=== PATIENT | male | born 1955 | race Caucasian/White ===

== ENCOUNTER 2021-08-10 14:21 | Observation (INO) | payer OTHER, SELFPAY ==
[2021-08-10] VITALS (26 sets, daily range): BP systolic 148–202; BP diastolic 89–150; PULSE 64–98; RESP 13–23; TEMP 36.4–37.2; O2SAT 96–100; BMI 24.3
--- NOTE | ~2021-08-10 | XR_ITS ---
EXAMINATION: XR chest 2V DATE: 08/10/2021 19:13 INDICATION: Wheezing TECHNIQUE: PA and lateral views of the chest were obtained. COMPARISON: None FINDINGS: The lungs are clear with no focal airspace opacities, pulmonary edema, pleural effusion or pneumothor ax. The cardiomediastinal silhouette is normal. Mild to moderate thoracic spondylosis. There appears be fusion between the right first and second ribs. IMPRESSION: 1. No acute cardiopulmonary disease. Reviewed, dictated and finalized at location A.
--- NOTE | ~2021-08-10 | CT_ITS ---
EXAMINATION: CTA brain carotid DATE: 08/11/2021 17:43 INDICATION: Stroke TECHNIQUE: Computed tomographic angiography (CTA) of the head was performed without and with 100 mL O mnipaque-350 intravenous contrast. CTA of the neck was performed with intravenous contrast. The dose- length product was 1684.75 mGy-cm. Maximum intensity projection and volume rendered 3D-reconstruction s were created by the technologist on a separate workstation. Automated exposure control and iterativ e reconstruction technique were employed. COMPARISON: MRI from today FINDINGS: HEAD CTA: There is no acute intraparenchymal hemorrhage. No evidence of mass lesion. No evidence of a cute infarction. The known acute right parieto-occipital infarcts are not well demonstrated. There is moderate periventricular and subcortical hypodensity probably related to small vessel ischemic disea se. There is mild prominence of the sulci and ventricles related to cerebral atrophy. Intracranial ca lcified cerebral atherosclerosis is noted. There are no extra-axial collections. There is no mass eff ect or midline shift. The orbits and soft tissues are unremarkable. The visualized sinuses and mastoi d air cells are well aerated. There is no significant stenosis of the basilar artery or posterior cerebral arteries. There is no si gnificant stenosis of the intracranial internal carotid arteries or the anterior or middle cerebral a rteries. The anterior communicating artery and posterior communicating arteries are normal. There is no aneurysm. NECK CTA: The thyroid gland is unremarkable. The submandibular and parotid glands are symmetric. Ther e is no lymphadenopathy. There are no masses identified. The airway is unremarkable. There are no oss eous abnormalities. The superior mediastinum is unremarkable. There is 90% stenosis of the proximal right internal carotid artery relative to normal distal artery lumen diameter (NASCET criteria). There is 86% stenosis of the proximal left internal carotid artery relative to normal distal artery lumen diameter. IMPRESSION: 1. No acute intracranial abnormality. Normal head CTA. Known acute right parieto-occipital infarcts n ot well demonstrated. 2. 90% stenosis of the proximal right internal carotid artery relative to normal distal artery lumen diameter (NASCET criteria). 3. 86% stenosis of the proximal left internal carotid artery relative to normal distal artery lumen d iameter. Reviewed, dictated and finalized at location A. IMPRESSION: 1. No acute intracranial abnormality. Normal head CTA. Known acute right pariet o-occipital infarcts not well demonstrated. 2. 90% stenosis of the proximal right internal carotid artery relative to mee l distal artery lumen diameter (NASCET criteria). 3. 86% stenosis of the proximal left internal carotid artery relative to normal distal artery lumen diameter.
--- NOTE | ~2021-08-10 | US_ITS ---
EXAMINATION: US carotid duplex BI DATE: 08/11/2021 12:51 INDICATION: Strokelike symptoms including left facial droop and slurred speech. TECHNIQUE: Grayscale, color Doppler, and pulsed Doppler images of the cervical carotid arteries were obtained. The degree of vessel stenosis is placed in one of the following categories: normal, <50%, 5 0-69%, >=70% but less than near-occlusion, near-occlusion, or total occlusion. Note that percent sten osis relative to normal distal artery lumen diameter is indirectly measured from velocity measurement s as described by Willis, et al. Radiology 2003; 229:340-346. COMPARISON: None. FINDINGS: RIGHT: The right common carotid artery (CCA) peak systolic velocity (PSV) is 51 cm/s. The right internal car otid artery (ICA) PSV is 223 cm/s. The right ICA end-diastolic velocity (EDV) is 77 cm/s. The right I CA/CCA PSV ratio is 4.4. Grayscale and color Doppler images yield an estimate of 50-69% diameter redu ction from plaque in the ICA. The external carotid artery (ECA) PSV is 98 cm/s. There is antegrade fl ow in the right vertebral artery. LEFT: The left CCA PSV is 63 cm/s. The left ICA PSV is 327 cm/s. The left ICA EDV is 172 cm/s. The left ICA /CCA PSV ratio is 5.2. Grayscale and color Doppler images yield an estimate of >=70% (but less than n ear occlusion) diameter reduction from plaque in the ICA. The ECA PSV is 119 cm/s. There is antegrade flow in the left vertebral artery. IMPRESSION: 1. 50-69% stenosis in the right internal carotid artery. 2. >=70% (but less than near occlusion) stenosis in the left internal carotid artery. Reviewed, dictated and finalized at location A. IMPRESSION: 1. 50-69% stenosis in the right internal carotid artery. 2. >=70% (but less than near occlusion) stenosis in the left internal carotid a rtery.
--- NOTE | ~2021-08-10 | CT_ITS ---
EXAMINATION: CT brain wo con DATE: 08/10/2021 14:51 INDICATION: Weakness. TECHNIQUE: Computed tomography (CT) of the head was performed without intravenous contrast. Sagittal and coronal reconstructions were performed. The mA was adjusted according to patient size. Iterative reconstruction technique was employed. The dose-length product was 681.00 mGy-cm. COMPARISON: None FINDINGS: Small old lacunar infarcts at the bilateral thalami and at the anterior limb of the left internal cap prerna. No acute intracranial hemorrhage, acute infarction or abnormal extra axial fluid collection. Th ere is mild moderate scattered white matter hypoattenuation consistent with chronic small vessel isch emic disease. Symmetric prominence of the sulci consistent with mild age-appropriate diffuse cerebral volume loss. Ventricles are normal and symmetric. No mass/mass effect. The orbits, paranasal sinuses and mastoid air cells are normal. IMPRESSION: 1. No acute intracranial process. 2. Old lacunar infarcts at the bilateral thalami and anterior limb of the left internal capsule. 3. Age-related changes including mild diffuse volume loss and mild to moderate scattered white matter hypoattenuation consistent with chronic small vessel ischemic disease. Reviewed, dictated and finalized at location A. IMPRESSION: 1. No acute intracranial process. 2. Old lacunar infarcts at the bilateral thalami and anterior limb of the left internal capsule. 3. Age-related changes including mild diffuse volume loss and mild to moderate scattered white matter hypoattenuation consistent with chronic small vessel isc hemic disease.
--- NOTE | ~2021-08-10 | MR_ITS ---
EXAMINATION: MR brain/brain stem wo/w con EXAM DATE: 08/11/2021 12:33 INDICATION: Stroke like symptoms. Specifically, slurred speech, left facial droop. TECHNIQUE: Magnetic resonance imaging (MRI) of the brain/brain stem obtained without contrast. Sagit joseph T1, axial diffusion, gradient echo (T2*), T1, T2, FLAIR sequences obtained. Patient was then inj ected with 16 cc intravenous Multihance contrast. Axial and coronal postcontrast T1 weighted sequence s obtained. There is no prior study for comparison. FINDINGS: There are about 7 small right parietal and occipital lobe acute infarctions. There is no ac [place] hemorrhage seen on the T2*, a hemosiderin sensitive sequence. No intraparenchymal brain mass les ion. There is moderate periventricular and subcortical T2/FLAIR signal hyperintensity, nonspecific bu t probably related to small vessel ischemic disease (microangiopathy). There is mild prominence of the sulci and ventricles related to cerebral atrophy. There are no extra-axial collections. Flow v oids are seen in the cerebral arteries on the T2-weighted sequences consistent with their expected pa tency. The orbits are unremarkable. Soft tissue is unremarkable. IMPRESSION: 1. Scattered small right parieto-occipital lobe infarctions. 2. Chronic age related findings. Reviewed, dictated and finalized at location A.
[2021-08-10 14:29] LABS: Glucose Point of Care 109 mg/dl (65-105)
--- NOTE | 2021-08-10 14:30 | ECG_ITS ---
Measurements Intervals [place] Rate: 77 P: 27 TX: 167 QRS: -20 QRSD: 106 T: 38 QT: 344 QTc: 391 Interpretive Statements SINUS RHYTHM FREQUENT VENTRICULAR PREMATURE COMPLEXES CANNOT RULE OUT SEPTAL INFARCT, AGE INDETERMINATE BASELINE ARTIFACT- I, III, AVR, AVL ABNORMAL ECG Electronically Signed On 08-11-2021 6:49:38 CDT by Shai Ryder D.O.
--- NOTE | 2021-08-10 14:33 | ED.NEUROSD ---
HPI - Neuro Symptoms/Deficit General Chief Complaint: Suspected CVA Stated Complaint: CVA?? Time Seen by Provider: 08/10/21 14:26 Source: patient Mode of arrival: EMS Limitations: no limitations History of Present Illness HPI Narrative: Patient is a 66-year-old male brought in by EMS after his family called 911 for possible stroke. Patient was at a restaurant, was holding a heavy plate on right hand and trying to open a door on the left hand and that is when he dropped his plate, family thinks that he had a stroke. Patient states that the plate was heavy and that is why he dropped. Patient denies any headache, dizziness, speech or visual disturbance, focal weakness or numbness, or unsteady gait. Patient denies any chest pain, shortness of breath, Ney pain, nausea, vomiting, fever or chills. Patient is a symptomatic this time and does not know why his family called 911. Daughters now present at bedside, both are nurses, states that their dad was having slurred speech and facial droop along with a right upper extremity weakness and that is why they called EMS. Related Data Home Medications Medication Instructions Recorded Confirmed amlodipine 2.5 mg PO DAILY 08/10/21 08/10/21 amlodipine 5 mg PO DAILY 08/10/21 08/10/21 carvedilol 6.25 mg PO DAILY 08/10/21 08/10/21 Allergies Allergy/AdvReac Type Severity Reaction Status Date / Time No Known Allergies Allergy Verified 08/10/21 14:23 Review of Systems Review of Systems: All systems reviewed & are unremarkable except as noted in HPI and below Constitutional: Constitutional: Denies body ache(s), Denies chills, Denies excessive sweating, Denies fatigue, Denies fever(s), Denies headache(s), Denies lethargy, Denies malaise, Denies weakness and Denies weight loss Eyes: Eyes: Denies blurry vision, Denies change in vision and Denies loss of vision ENT: Denies dizziness, Denies ear discharge, Denies headache(s), Denies lip swelling, Denies epistaxis, Denies nasal congestion, Denies neck pain, Denies throat swelling and Denies tongue swelling Cardiovascular: Cardiovascular: Denies chest pain, Denies chest pain at rest, Denies chest pain with activity, Denies diaphoresis, Denies rapid heart rate, Denies edema, Denies irregular heart rhythm, Denies lightheadedness, Denies palpitations, Denies dyspnea and Denies dyspnea on exertion Respiratory: Respiratory: Denies chest congestion, Denies cough, Denies hemoptysis, Denies dyspnea and Denies dyspnea on exertion Gastrointestinal: Gastrointestinal: Denies abdominal pain, Denies melena, Denies hematochezia, Denies diarrhea, Denies nausea, Denies vomiting and Denies hematemesis Musculoskeletal: Musculoskeletal: Denies abnormal gait, Denies deformity, Denies joint swelling, Denies limited range of motion, Denies neck pain and Denies numbness Neurologic: Denies Abnormal speech present, Denies abnormal gait, Denies confusion, Denies dizziness, Denies headache(s), Denies focal weakness, Denies loss of vision, Denies numbness, Denies Other visual disturbances, Denies Sensory deficit (Neuro) and Denies weakness Psychiatric: Psychiatric: Denies confusion, Denies depression, Denies auditory hallucinations, Denies homicidal ideation and Denies suicidal ideation Endocrine: Endocrine: Denies cold intolerance, Denies excessive sweating, Denies fatigue, Denies heat intolerance and Denies palpitations Hematologic/Lymphatic: Hematologic/Lymphatic: Denies easy bleeding and Denies easy bruising Allergic/Immunologic: Allergic/Immunologic: Denies lip swelling, Denies throat swelling and Denies tongue swelling PMFSH Comments Past medical history: Hypertension Family history: Stroke Social history: Non-smoker no EtOH use, occasional marijuana use Exam Const: General: cooperative, healthy appearing, comfortable, no acute distress, well developed, alert and awake; No confusion Orientation/consciousness: oriented to person, oriented to place, oriented to time, pa
[2021-08-10 15:10] LABS: Basophils Absolute Auto 0.1 K/mm3 (0.0-0.1); Eosinophils Absolute Auto 0.1 K/mm3 (0-0.3); Hematocrit 39.9 % (42.0-52.0); Hemoglobin 14.2 g/dL (14.0-18.0); Immature Granulocyte Absolute 0.02 K/mm3 (0.00-0.031); Immature Granulocyte Percent A 0.3 % (0-0.5); Lymphocytes Absolute Auto 1.65 K/mm3 (0.9-3.2); Lymphocytes Percent Auto 28.8 % (18.3-44.2); Mean Corpuscular HGB Conc 35.6 g/dl (32-36); Mean Corpuscular Hemoglobin 34.9 pg (26-34); Mean Platelet Volume 8.7 fl (7.4-10.4); Monocytes Absolute Auto 0.7 K/mm3 (0.1-0.6); Monocytes Percent Auto 12.2 % (2.6-8.5); Neutrophils Absolute Auto 3.2 K/mm3 (1.3-6.7); Neutrophils Percent Auto 56.7 % (45.5-73.1); Platelet Count Result 258 k/mm3 (150-375); Red Blood Count 4.07 M/mm3 (4.6-6.20); Red Cell Distribution Width 12.1 % (11.5-14.5); White Blood Count 5.7 K/mm3 (4.5-10.0)
[2021-08-10] MEDS: LABETALOL HCL INJ 100 MG/20 ML VIAL 20 MG IV PUSH (15:19)
[2021-08-10 15:21] LABS: Anion Gap 11 mmol/L (8-16); Blood Urea Nitrogen 18 mg/dL (9-20); Calcium 10.2 mg/dL (8.4-10.2); Carbon Dioxide 27 mmol/L (22-30); Chloride 98 mmol/L (98-107); Estimated Glomerular Filt Rate > 60; Glucose 120 mg/dL (65-110); Potassium 4.1 mmol/L (3.4-5.0); Sodium 136 mmol/L (137-145)
[2021-08-10 15:33] LABS: Troponin I < 0.012 ng/mL (0.000-0.034)
--- NOTE | 2021-08-10 17:04 | PC.NURSE ---
ordered a heart healthy tray for patient.
[2021-08-10] MEDS: ASPIRIN 325 MG TABLET (17:23)
--- NOTE | 2021-08-10 18:26 | PM.IMHP ---
H&P: HPI History of Present Illness Date/Time: 08/10/21 18:26 this is a 66-year-old male patient who has a history of hypertension. The patient was at a family event when the patient's family noticed that the patient was not acting right. The patient stated that he was holding a plate of food in his right hand attempted to turn the knob to the door with his left hand. He noticed that the food was falling off of his plate and that he eventually lost all the food on his plate. He attempted to bend over and sweet pickled fruit maker his food and was having difficulty. His daughter is a nurse here and she is test the patient. She noticed that the patient had a right facial droop and that he was unable to speak for about a minute. The patient was slow to recover to orientation at that time. Once the patient came to the emergency room he was back to his baseline. He had no further symptoms once he came to the hospital. CT of the head was read as no acute intracranial process. Old lacunar infarcts at the bilateral thalami and anterior limb of the left internal capsule. Age-related changes including mild diffuse volume loss and mild to moderate scattered matter hypoattenuation consistent with chronic small vessel ischemic disease. Sodium is 136. Glucose 120. The patient has no focal weakness. Patient was given labetalol, aspirin and lactated Ringer's in the emergency room. Patient's blood pressure initially was 202/150 and it came down to 165 / 90 and then came up to 199/116. Neurology has been consulted however no neurology is available at this time but will be here in the morning. The patient is being admitted to observation on the date of service of 08/10/2021. Chief Complaint: Right-sided weakness Review of Systems Review of Systems: All systems reviewed & are unremarkable except as noted in HPI and below Constitutional: Constitutional: Reports as per HPI and Reports no additional constitutional complaints Eyes: Eyes: Reports as per HPI and Reports no additional eye complaints ENT: Reports system reviewed and no additional complaints, except as documented and Reports Normal hearing present Cardiovascular: Cardiovascular: Reports no additional cardiovascular complaints Respiratory: Respiratory: Reports no additional respiratory complaints and Reports no additional respiratory complaints Gastrointestinal: Gastrointestinal: Reports as per HPI and Reports no additional gastrointestinal complaints Musculoskeletal: Musculoskeletal: Reports no additional musculoskeletal complaints Integumentary/Breasts: Skin/Breast: Reports system reviewed and no additional complaints, except as docu and Reports as per HPI Neurologic: Reports system reviewed and no additional complaints, except as documented, Reports as per HPI and Reports Normal hearing present Psychiatric: Psychiatric: Reports no additional psychiatric complaints and Reports as per HPI Endocrine: Endocrine: Reports no additional endocrine complaints Hematologic/Lymphatic: Hematologic/Lymphatic: Reports no additional hematologic/lymphatic complaints Allergic/Immunologic: Allergic/Immunologic: Reports no additional allergic/immunologic complaints PMFSH Past Medical History Medical History (Updated 08/10/21 @ 18:55 by Elvira Oswald NP) Alcohol abuse CVA (cerebral vascular accident) [place] (hard of hearing) HTN (hypertension) with goal to be determined Surgical History Surgical History (Updated 08/10/21 @ 18:41 by Elvira Oswald NP) H/O hernia repair H/O left knee surgery H/O thumb surgery left Family History Family History (Updated 08/10/21 @ 18:43 by Elvira Oswald NP) Mother Cerebrovascular accident Hypertension Heart disease Father Cerebrovascular accident Sibling Cerebrovascular accident Social History Social History (Updated 08/10/21 @ 18:45 by Elvira Oswald NP) Social History: The patient is and lives home alone. The patient had 6 children but 1 s
--- NOTE | 2021-08-10 18:46 | ADMGEN ---
This patient, Fransico Lozano, was admitted to Medical Room 244-. Patient/family oriented to hospital policies and general routines including ID bracelet, bed and alarms, visiting hours, pain management, procedures, bathroom and other care routines, personal items, smoking policy, room service/diet, and visiting hours. Information on how to activate the Rapid Response Team has been discussed. Patient/Family are encouraged to report perceived risks to care and to ask questions if they do not understand what they are told or what they should do.
[2021-08-10] MEDS: hydrALAZINE HCL 20 MG/ML VIAL 10 MG IV PUSH (23:47)
[2021-08-11] VITALS (16 sets, daily range): BP systolic 128–163; BP diastolic 79–90; PULSE 72–97; RESP 14–18; TEMP 36–37; O2SAT 96–100
--- NOTE | 2021-08-11 | ECHO_ITS ---
Patient Info Name: Fransico Lozano Age: 66 years : 1955 Gender: Male Ht: 67 in Wt: 176 lbs BSA: 1.96 m2 HR: 71 bpm BP: 139 / 84 mmHg Heart Rhythm: Sinus Rhythm Exam Date: 08/11/2021 11:06 AM Exam Location: [facility] Patient Status: Outpatient Admit Date: 08/10/2021 Staff Ordering Physician: Elvira Oswald NP Sommelier: Kennedy Jackson RDCS, RT Attending Provider: Marlen Pink PA-C Referring Physician: Darek RASHID; Exam Type: CA echo doppler w bubble study Study Info Indications G45.8 - Other transient cerebral ischemic attacks and related syndromes Strain analysis performed. Complete two-dimensional, color flow and Doppler transthoracic echocardiogram is performed with agitated saline. Summary 1. Left ventricular chamber dimension is normal. 2. Left ventricular systolic function is normal, estimated at 50-55%. 3. No significant valvular abnormality. 4. Saline contrast injection shows no evidence of intracardiac shunt. Left Ventricle Left ventricular chamber dimension is normal. Left ventricular systolic function is normal, estimated at 50-55%. The left ventricular diastolic function is grade I diastolic dysfunction. Right Ventricle Right ventricular chamber dimension is normal. Left Atria Left atrial chamber dimension is normal. Right Atria Right atrial chamber dimension is normal. Atrial Septum Intact interatrial septum visualized by agitated saline imaging. Aortic Valve The aortic valve is normal. Pulmonic Valve The pulmonic valve is not well visualized. Mitral Valve The mitral valve has normal leaflets. Tricuspid Valve The tricuspid valve leaflets are normal. Aorta The aortic root size at the sinus of Valsalva is normal. Left Ventricular Outflow Tract Name Value Normal LVOT 2D LVOT Diameter 2.0 cm LVOT Doppler LVOT Peak Gradient 2 mmHg LVOT Mean Gradient 1 mmHg LVOT VTI 17 cm LVOT VTI/AV VTI Ratio 0.8 LVOT Stroke Volume 56 ml LVOT CO 4.1 l/min LVOT CI 2.1 l/min/m2 Mitral Valve Name Value Normal MV Doppler MV Decel [place] 305 cm/s2 MV PHT 71 ms MV Area (PHT) 3.1 cm2 4.0-5.0 MV Diastolic Function MV E Peak Velocity 74 cm/s MV A Peak Velocity 97 cm/s MV E/A 0.8 MV Decel Time 243 ms MV Annular TDI MV E/e' (
[2021-08-11] MEDS: chlordiazePOXIDE (*CRX) 10 MG CAPSULE PO (04:33)
[2021-08-11 04:50] LABS: Basophils Absolute Auto 0.1 K/mm3 (0.0-0.1); Basophils Percent Auto 0.8 % (0.2-1.2); Eosinophils Absolute Auto 0.1 K/mm3 (0-0.3); Eosinophils Percent Auto 1.1 % (0-4.4); Hematocrit 38.6 % (42.0-52.0); Immature Granulocyte Absolute 0.01 K/mm3 (0.00-0.031); Immature Granulocyte Percent A 0.2 % (0-0.5); Lymphocytes Absolute Auto 2.25 K/mm3 (0.9-3.2); Lymphocytes Percent Auto 35.4 % (18.3-44.2); Mean Corpuscular HGB Conc 36.3 g/dl (32-36); Mean Corpuscular Hemoglobin 34.3 pg (26-34); Mean Corpuscular Volume 94.6 fl (80-100); Mean Platelet Volume 8.5 fl (7.4-10.4); Neutrophils Percent Auto 46.5 % (45.5-73.1); Platelet Count Result 248 k/mm3 (150-375); Red Blood Count 4.08 M/mm3 (4.6-6.20); Red Cell Distribution Width 11.9 % (11.5-14.5); White Blood Count 6.4 K/mm3 (4.5-10.0)
[2021-08-11 05:05] LABS: Alanine Aminotransferase 23 U/L (4-50); Albumin Level 4.8 g/dL (3.5-5.1); Alkaline Phosphatase 96 U/L (38-126); Anion Gap 10 mmol/L (8-16); Aspartate Amino Transferase 42 U/L (17-59); Bilirubin,Total 0.7 mg/dL (0.2-1.3); Blood Urea Nitrogen 17 mg/dL (9-20); Calcium 9.4 mg/dL (8.4-10.2); Carbon Dioxide 29 mmol/L (22-30); Chloride 96 mmol/L (98-107); Estimated CRCL calculation 86 ml/min; Estimated Glomerular Filt Rate > 60; Glucose 106 mg/dL (65-110); Lactate Dehydrogenase 348 U/L (313-618); Magnesium 1.8 mg/dL (1.6-2.3); Potassium 3.6 mmol/L (3.4-5.0); Sodium 135 mmol/L (137-145)
[2021-08-11] MEDS: THIAMINE HCL 100 MG TABLET PO (07:59)
[2021-08-11] MEDS: carvediloL 6.25 MG TABLET PO (07:59)
[2021-08-11] MEDS: ASPIRIN 325 MG ENTERIC TABLET PO (07:59)
[2021-08-11] MEDS: amLODIPine BESYLATE 2.5 MG TABLET PO (08:00)
[2021-08-11] MEDS: FOLIC ACID 1 MG TABLET PO (08:00)
[2021-08-11] MEDS: amLODIPine BESYLATE 5 MG TABLET PO (08:00)
--- NOTE | 2021-08-11 10:40 | WPDNEURCNPN ---
Assessment and Plan Additional Plan Will wait for the MRI to see with new stroke is documented or not before in further recommendations are made in the meantime will continue the medication as such Consult date: 08/11/21 Time Seen: 08:45 HPI: Fransico Lozano is a 66 year old male Has been admitted to the hospital with the information that he was holding a plate of food in his right hand attempted to turn the norm to the door with his left hand he noted the foot was falling of his plate and eventuality lost all the food on his plate, tempted to bend over to cook pickled meat food but was having extreme difficulties his daughter who happens to be nurse she tested the position of the patient he was noted to have right facial droop, was unable to speak for about a minute and was also slow to recover the orientation to the time worse the patient came to the emergency room was back to his baseline CT of the head in the emergency room was negative for the bleed or space-occupying lesion but old lacunar infarcts were documented at the bilateral thalami and anterior limb of the left internal capsule along with the mild diffuse volume loss and mild to moderate scattered matter hypoattenuation consistent with the chronic small-vessel ischemic disease he was documented to have sodium of 136 glucose of 120 and no focal weakness in the emergency room he received labetalol, aspirin, and lactated Ringer's solution in the emergency room his blood pressure was 202/150 which gradually came down to 165/90 and then again tripp up to 199/116 he was admitted to the hospital for further evaluation, patient does have ongoing history of in the past 1. Alcohol abuse 2. Previous cerebrovascular accident 3. Hard of hearing 4. Hypertension 5. History of left knee and thumb surgery, he is a never smoker current alcohol intake her drinks per week include 35 substance use includes marijuana and his outpatient medications included amlodipine 2.5 mg daily carvedilol 6.25 mg daily and also investigations included the CBC which revealed no leukocytosis hemoglobin was 14.0 with a platelet count of 248, history was normal and as mentioned before CT scan documented the old lacunar infarcts Review of Systems Review of Systems: All systems reviewed & are unremarkable except as noted in HPI and below PMFSH Past Medical History Medical History Alcohol abuse CVA (cerebral vascular accident) [place] (hard of hearing) HTN (hypertension) with goal to be determined Surgical History Surgical History H/O hernia repair H/O left knee surgery H/O thumb surgery left Family History Family History Mother Cerebrovascular accident Hypertension Heart disease Father Cerebrovascular accident Sibling Cerebrovascular accident Social History Social History Social History: The patient is and lives home alone. The patient had 6 children but 1 son at 6-month-old. The patient desires to be a full code. The patient drinks about 4-5 beers 16 oz a day. He does smoke marijuana but does not smoke any cigarettes. Will no illicit drugs. His daughter Deandre baldwin is his power of bilingual customer service for healthcare. S MsTristian me think the the Smoking status: Never smoker Alcohol intake: current Drinks per week: 35 Substance use type: marijuana Last use: 08/09/21 Spiritual care concerns: No Meds Home Medications and Allergies Home Medications Medication Instructions Recorded Confirmed Type amlodipine 2.5 mg PO DAILY 08/10/21 08/10/21 History amlodipine 5 mg PO DAILY 08/10/21 08/10/21 History carvedilol 6.25 mg PO DAILY 08/10/21 08/10/21 History Allergies Allergy/AdvReac Type Severity Reaction Status Date / Time No Known Allergies Allergy Verified 08/10/21 18:52 Vital Signs Vital S
--- NOTE | 2021-08-11 12:25 | PC.NURSE ---
Pt to MRI per Wheelchair 1225 08/11/21.
--- NOTE | 2021-08-11 15:05 | PM.IMPN ---
Progress Note: A&P Assessment and Plan (1) CVA (cerebral vascular accident): Code(s): I63.9 - Cerebral infarction, unspecified Status: Chronic Assessment and Plan: Presented with left-sided facial droop. Resolved, no focal neuro deficits noted on exam today Head CT showed no acute intracranial findings with evidence of old lacunar infarcts, not previously known to the patient or family Follow-up brain MRI showed 7 small parietal occipital lobe acute infarctions Echo with bubble study showed normal EF with no significant valvular abnormality and no evidence of intracardiac shunt Carotid Doppler showed 50 69% stenosis of the right internal carotid and >/=70% stenosis of left internal carotid, less than near occlusion Will proceed with neurology consultation Has been started on aspirin, continue Initiate atorvastatin 40 mg. Lipid panel pending PT/OT/ST evals appreciated Will obtain head/neck CTA (2) Carotid artery disease: Code(s): I77.9 - Disorder of arteries and arterioles, unspecified Status: Acute Assessment and Plan: See above Await results of head/neck CTA (3) HTN (hypertension) with goal to be determined: Code(s): I10 - Essential (primary) hypertension Status: Chronic Assessment and Plan: Blood pressure markedly elevated on presentation with BP 202/150 Received labetalol in the ED with BP improvement BP remaining stable, last BP 141/79 Will allow for permissive hypertension in the setting of acute CVA. Hold amlodipine with goal systolic BP 180s. (4) Wheezing: Code(s): R06.2 - Wheezing Status: Acute Assessment and Plan: Chronic, etiology unclear CXR with no acute findings Denies history of asthma or COPD. Denies cigarette smoking history Administer albuterol nebs and see if this improves symptoms Start Flonase and Mucinex for sinus congestion May benefit from outpatient PFTs due to chronic wheezing (5) Alcohol abuse, daily use: Code(s): F10.10 - Alcohol abuse, uncomplicated Status: Acute Assessment and Plan: Drinks 4-5 beers daily. No history of alcohol withdrawal. Continue thiamine and folic acid CIWA scores 0-5 Librium prn CIWA >8 Subjective Date/time seen: 08/11/21 15:05 Interval history: Date of service: 08/11/2021 Fransico Lozano is 66-year-old male with a history hypertension, daily alcohol use, and difficulty hearing who is seen in follow-up for acute CVA. He was at lunch yesterday when he had trouble balancing his plate and was noted by family members to have left-sided facial drooping. At the time of my evaluation, he is feeling well. He denies facial drooping. He denies speech changes. No visual changes. No dysphagia. Denied difficulty with coordination or balance. He has been able to get up and ambulate to the bathroom independently. Denies weakness. No dizziness or lightheadedness. No numbness or tingling of extremities. He has no additional neurologic symptoms. He denies shortness of breath, cough, or chest pain. His appetite has been good. He has no additional concerns. He does note some mild wheezing which she states occurs most mornings and he relates this to chronic sinus congestion. He frequently has sputum production and has to clear his throat. Review of Systems Review of Systems: All systems reviewed & are unremarkable except as noted in HPI and below Exam Narrative: Mr. Lozano is a well-nourished, well-appearing 66-year-old male who is lying supine in bed. He appears comfortable and is in NARD. Neuro: awake, alert and oriented x 4, speech clear. CN II-XII intact, strength 5/5 throughout, sensation intact, no pronator drift, bilateral waterworks operator strength equal, able to perform rapid alternating movements, able to perform finger to nose and heel to montelongo, gait normal HEENMT: normocephalic, atraumatic, EOMI, sclerae anicteric, moist oral mucosa,
[2021-08-11 15:21] LABS: Cholesterol 188 mg/dL (0-200); HDL Direct 70 mg/dL; Triglycerides 101 mg/dL (<150)
[2021-08-11 15:32] LABS: LDL Cholesterol Direct 87 mg/dL
--- NOTE | 2021-08-11 17:28 | PC.NURSE ---
Pt return from CTA per wheelchair.
[2021-08-11] MEDS: ALBUTEROL SULFATE NEB 2.5 MG/0.5 ML INH INHALATION (20:20)
[2021-08-11] MEDS: guaiFENesin 12 HR 600 MG TABCR PO (20:50)
[2021-08-11] MEDS: FLUTICASONE PROPIONATE 0.05% NA SPR 16 GM BTL (*BKC) 1 SPRAY NASAL (20:51)
[2021-08-12] VITALS (13 sets, daily range): BP systolic 152–171; BP diastolic 80–82; PULSE 70–93; RESP 17–18; TEMP 36.2–36.7; O2SAT 95–97
[2021-08-12] MEDS: ALBUTEROL SULFATE NEB 2.5 MG/0.5 ML INH INHALATION ×3 (02:15→13:44)
[2021-08-12 06:18] LABS: Anion Gap 7 mmol/L (8-16); Blood Urea Nitrogen 18 mg/dL (9-20); Carbon Dioxide 29 mmol/L (22-30); Chloride 97 mmol/L (98-107); Estimated CRCL calculation 86 ml/min; Estimated Glomerular Filt Rate > 60; Glucose 93 mg/dL (65-110); Potassium 3.6 mmol/L (3.4-5.0); Sodium 133 mmol/L (137-145)
[2021-08-12] MEDS: carvediloL 6.25 MG TABLET PO (07:59)
[2021-08-12] MEDS: FOLIC ACID 1 MG TABLET PO (08:00)
[2021-08-12] MEDS: guaiFENesin 12 HR 600 MG TABCR PO (08:00)
[2021-08-12] MEDS: ASPIRIN 81 MG ENTERIC TABLET PO (08:00)
[2021-08-12] MEDS: FLUTICASONE PROPIONATE 0.05% NA SPR 16 GM BTL (*BKC) 1 SPRAY NASAL (08:00)
[2021-08-12] MEDS: THIAMINE HCL 100 MG TABLET PO (08:00)
[2021-08-12] MEDS: ATORVASTATIN 40 MG TABLET PO ×2 (08:00→09:38)
[2021-08-12 08:17] LABS: Hemoglobin A1C 4.9 % (<5.7)
--- NOTE | 2021-08-12 08:57 | PCSTNOTE ---
Please refer to the Bedside Swallow Evaluation in the EMR. Please note, silent aspiration cannot be ruled out at bedside.
[2021-08-12] MEDS: CLOPIDOGREL BISULFATE 75 MG TABLET PO (09:38)
--- NOTE | 2021-08-12 10:37 | WPDNEUROPN ---
Progress Note: A&P Additional Plan patient has been given aspirin 325 mg along with the Plavix 75 mg daily has already been referred to the [facility] they will see the patient as an outpatient next week and most likely he will undergo endarterectomy all the findings were discussed with the patient and he was emphasized to keep the follow-up and keep the medications regularly Time Spent With Patient Time with patient: 15 - 25 minutes Subjective Date/time seen: 08/12/21 10:37 66 years old right-handed male was admitted to [facility] through the emergency room for the complaints of possible stroke with the symptomatology as described previously. Evaluation documented on CTA no intracranial abnormality except the acute right parieto-occipital infarct but 90% stenosis of the proximal right ICA and 86% stenosis of proximal left ICA in addition to 50 to 69% stenosis of the right ICA on the Doppler study and more than 70% of the left ICA again on the Doppler study but the brain MRI revealed scattered small right parieto-occipital lobe infarction and chronic age-related changes and echocardiogram is completely normal particularly with saline contrast injection there is no evidence of intra cardiac shunt Review of Systems Review of Systems: All systems reviewed & are unremarkable except as noted in HPI and below Exam Narrative: examination today revealed him to be awake alert cooperative in no obvious acute distress speech nor dysphasic no dysarthric not dysphonic pupils round regular feels the vision full extraocular movement full face symmetrical tongue midline motor examination revealed him to have no gross drift a one-sided other side reflexes are brisk plantars are downgoing there is no evidence of gross cerebellar deficits Objective Data Vital Signs Vital Signs: Vital Signs - 24 hr 08/11/21 12:00 08/11/21 14:35 08/11/21 16:00 Temperature 37.0 C Pulse Rate 76 73 79 Respiratory Rate 14 Blood Pressure 141/79 H Pulse Oximetry 96 08/11/21 18:00 08/11/21 19:46 08/11/21 20:00 Temperature 36.2 C L Pulse Rate 87 75 72 Respiratory Rate 16 Blood Pressure 128/90 163/80 H Pulse Oximetry 98 08/11/21 20:20 08/11/21 20:27 08/11/21 20:28 Temperature Pulse Rate 76 76 75 Respiratory Rate 18 18 Blood Pressure Pulse Oximetry 96 08/11/21 23:44 08/12/21 00:00 08/12/21 02:16 Temperature 36.0 C L Pulse Rate 81 70 72 Respiratory Rate 17 18 Blood Pressure 143/88 H Pulse Oximetry 100 08/12/21 02:22 08/12/21 03:24 08/12/21 04:00 Temperature 36.2 C L Pulse Rate 72 80 74 Respiratory Rate 18 17 Blood Pressure 171/82 H Pulse Oximetry 95 08/12/21 07:59 08/12/21 08:00 08/12/21 09:01 Temperature 36.7 C Pulse Rate 93 93 78 Respiratory Rate 18 18 Blood Pressure 152/80 H Pulse Oximetry 97 08/12/21 09:02 08/12/21 09:09 Temperature Pulse Rate 78 75 Respiratory Rate 18 18 Blood Pressure Pulse Oximetry 95 Intake/Output Intake/Output: Intake & Output 08/09/21 08/10/21 08/11/21 08/12/21 23:59 23:59 23:59 23:59 Intake Total 1050 1120 Output Total 600 900 600 Balance -600 150 520 Meds/Results Medications: Active Medications Generic Name Dose Route Start Last Admin Trade Name José PRN Reason Stop Dose Admin Albuterol 2.5 mg 08/11/21 20:00 08/12/21 09:01 Albuterol Sulfate Neb 2.5 Mg/0.5 Ml Inh INHALATION 2.5 mg Q6HRT RM Administration Amlodipine Besylate 2.5 mg 08/11/21 09:00 08/11/21 08:00 Amlodipine Besylate 2.5 Mg Tablet PO 2.5 mg DAILY RM Administration Amlodipine Besylate 5 mg 08/11/21 09:00 08/11/21 08:00 Amlodipine Besylate 5 Mg Tablet PO 5 mg DAILY RM Administration Aspirin 81 mg 08/12/21 09:00 08/12/21 08:00 Aspirin 81 Mg Enteric Tablet PO 81 mg QAM RM Administration Atorvastatin Calcium 80 mg 08/13/21 09:00 Atorvastatin 40 Mg Tablet PO DAILY RM Carvedilol 6.25 mg 08/11/21 08:
--- NOTE | 2021-08-12 12:41 | PC.NURSE ---
On 08/12/21, the student, Flory Rob, provided care and completed [facility] documentation on this patient. I have reviewed the student's documentation and agree with the findings.
--- NOTE | 2021-08-12 14:14 | PM.DS ---
DS: Admitting Diagnosis Discharge Date 08/12/2021 Admitting Diagnosis CVA DS: Discharge Diagnosis Discharge Diagnosis (1) CVA (cerebral vascular accident): Code(s): I63.9 - Cerebral infarction, unspecified Status: Chronic Assessment and Plan: Presented with left-sided facial droop lasting for approximately 5 minutes per patient family. He had no focal neurologic deficits on my exam. Head CT showed no acute intracranial findings with evidence of old lacunar infarcts, not previously known to the patient or family Follow-up brain MRI showed 7 small parietal occipital lobe acute infarctions Echo with bubble study showed normal EF with no significant valvular abnormality and no evidence of intracardiac shunt Carotid Doppler showed 50-69% stenosis of the right internal carotid and >/=70% stenosis of left internal carotid, less than near occlusion Head/neck CTA showed 90% stenosis of the proximal right ICA and 86% stenosis of the proximal left ICA CVA felt to be related to showering emboli causing small clot burden. Seen in consultation by neurologist, Dr. Hackett Evaluated by PT/OT/ST and found to be at baseline with no ongoing therapy requirements On 08/12/2021 after reviewing results of his head/neck CTA showing significant carotid stenosis, I spoke with the stroke team at [facility]. I 1st spoke with [address]. Bishop at approximately 8:00 a.m. regarding the patient's stroke and carotid artery disease who recommended vascular surgery evaluation. I was then connected to vascular surgeon, Dr. Dimitry Ruff. I discussed the patient's imaging with him, however he was not able to access the images that were pushed from this facility at the time of our phone call. He recommended continuing aspirin 81 mg daily, initiating Plavix, and increasing atorvastatin to 80 mg daily. He reported the patient could either be transferred to [facility] for evaluation and intervention in 1 week or discharged and follow-up in his clinic on 08/15/2021 to review his imaging and schedule him for intervention in 1 week. Both of these options were presented to the patient and his family and he decided to proceed with discharge and outpatient follow-up. I then spoke with Sofía at Dr. Ruff office to arrange outpatient follow-up for the patient. I spoke with Dr. Ruff again who reported his clinic would be closed on 08/15/2021 and a follow-up appointment was made for 08/18/2021 with plans for surgical intervention to be followed later that week. I discussed with the patient worrisome signs and symptoms for which to monitor and instructed him to call 911 if he developed any neurologic symptoms. I reiterated this information to the patient's daughter, Lo, who is a nurse at this facility. He was educated on his medications and was discharged in hemodynamically stable condition. A disc of his imaging was mailed to Dr. Ruff office and a copy was given to the patient who was instructed to bring to his vascular appointment. The imaging was pushed to [facility] per radiology. At approximately 4:00 p.m., I received a call from the patient's daughter, Deandre. Deandre informed me that approximately 1 hour after the patient left the facility, they received a call from vascular surgeon Dr. Ruff who reported he reviewed the patient's imaging and recommended that he be admitted to [facility] (08/12/21) to proceed with endarterectomy tomorrow. They were then informed that unfortunately [facility] does not accept his insurance. At that time they called me for recommendations. I discussed with my supervising physician and recommended that he immediately proceed to the emergency department at [facility] where his insurance is accepted and they do have vascular surgery capabilities. I stressed the need for immediate presentation to the ED given time critical need for surgical intervention per vascular surgeon instructions. I discussed with patient's daughter Deandre and Lo via phone these recommendations. I instruct
== END 2021-08-12 15:23 | disposition home or self-care (01) ==
LOC: ANHED 17:24 → ANH2MED 18:02
PROVIDERS: Nurse Practitioner; Physician Assistant; Admitting Provider Internal Medicine; Emergency Provider Emergency Medicine; PCP Nurse Practitioner; Visit Provider Internal Medicine
DX: I63.9 Cerebral infarction, unspecified (principal); I65.23 Occlusion and stenosis of bilateral carotid arteries; R29.810 Facial weakness; G81.91 Hemiplegia, unspecified affecting right dominant side; I10 Essential (primary) hypertension; F10.10 Alcohol abuse, uncomplicated; R06.2 Wheezing; Z86.73 Personal history of transient ischemic attack (TIA), and cerebral infarction without residual deficits
CPT/HCPCS: 36415; 70450; 70496; 70498; 70553; 71046; 80048; 80053; 80061; 82948; 83036; 83605; 83615; 83735; 84443; 84484; 85025; 92610; 93005; 93306; 93880; 94640; 96374; 96375; 97161; 97165; 99285; A9270; A9577; G0378; J0360; Q9967